=== PATIENT | male | born 2000 | race Caucasian/White ===

== ENCOUNTER 2020-04-20 12:27 | Emergency (ER) | payer SELFPAY ==
[~2020-04-20] VITALS: Ht 167.6 cm; Wt 67.6 kg
[2020-04-20 12:41] VITALS: BP 121/64
[2020-04-20] MEDS ORDERED: KETOROLAC 30 MG/ML VIAL IM ONE (13:05)
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
--- NOTE | 2020-04-20 13:40 | NUR ---
SIZED CRUTCHES TO PATIENT
[2020-04-20 13:58] VITALS: BP 121/64
== END 2020-04-20 13:58 | disposition home or self-care (01) ==
LOC: MED 12:27
DX: S83.8X1A Sprain of other specified parts of right knee, initial encounter (principal); V49.88XA Car occupant (driver) (passenger) injured in other specified transport accidents, initial encounter; Y93.89 Activity, other specified; Y92.89 Other specified places as the place of occurrence of the external cause; Y99.8 Other external cause status
CPT/HCPCS: 73562; 96372; 99283; J1885; Q0092